=== PATIENT | female | born 1945 | race Caucasian/White ===

== ENCOUNTER 2021-10-10 16:24 | Inpatient (IN) | payer MEDICARE, BC, OTHER ==
[~2021-10-10] VITALS: Ht 160 cm; Wt 166.0 kg
--- NOTE | 2021-10-10 16:48 | NUR ---
ALLYSON TO ER BED 11
[2021-10-10 16:57] VITALS: BP 142/78
--- NOTE | 2021-10-10 16:57 | NUR ---
DR. IRWIN BEDSIDE EVALUATING PT
--- NOTE | 2021-10-10 17:09 | NUR ---
76Y FEMALE BIBA FROM HOME DUE TO SOB X2 DAYS. UPON ASSESSMENT PT HAS RASH/OPEN WOUNDS ON BILATERAL BREAST AT THIS TIME. PT STATED "SHE HAS LUNG PAIN AT THIS TIME, BUT NO CHEST PAIN." RHONCHI HEARD IN BILATERAL BASES AT THIS TIME, AND PT TACHYPNEIC AT THIS TIME. PT STATED "SHE IS SHORT OF BREATH AT THIS TIME AND FEELS LIKE SHE CANNOT CATCH HER BREATH." PT CURRENTLY 93% ON RA. WET COUGH NOTED AT THIS TIME. LE PITTING EDEMA NOTED ON PATIENT WELL. PT PLACED ON MIMEOGRAPHER PMH: COPD, CHF, A.FIB NKA
--- NOTE | 2021-10-10 17:11 | NUR ---
PT CURRENTLY SATING AT 93% ON RA. PT PALCED ON 2L VIA NC. PT ALSO REFUSING TO BE PLACED INTO HOSPITAL GOWN
--- NOTE | 2021-10-10 17:11 | NUR ---
XRAY AT PATIENT BEDSIDE
--- NOTE | 2021-10-10 18:14 | NUR ---
LAB AT PATIENT BEDSIDE
--- NOTE | 2021-10-10 18:21 | NUR ---
CALLED [facility] [employer]PER[employer] [facility] TO OBTAIN PICC LINE FOR PATIENT
[2021-10-10 18:41] LABS: BASOPHILS % (AUTO) 0.4 % (0.0-2.0); EOSINOPHILS # (AUTO) 0.1 K/uL (0-0.4); EOSINOPHILS % (AUTO) 1.8 % (0.0-4.0); HEMATOCRIT 34.4 % (36-48); HEMOGLOBIN 11.3 g/dL (12.0-16.0); LYMPHOCYTES # (AUTO) 0.8 K/uL (2.5-16.5); LYMPHOCYTES % (AUTO) 10.2 % (20.5-51.1); MEAN CORPUSCULAR HEMOGLOBIN 28 pg (27-31); MEAN CORPUSCULAR HGB CONC 33 g/dL (33-37); MEAN CORPUSCULAR VOLUME 85.6 fL (80-94); MONOCYTES # (AUTO) 0.6 K/uL (0.8-1.0); MONOCYTES % (AUTO) 8.3 % (1.7-9.3); NEUTROPHILS # (AUTO) 6.2 K/uL (1.8-7.7); NEUTROPHILS % (AUTO) 79.3 % (42.2-75.2); PLATELET COUNT (AUTO) 315 K/uL (140-450); RED BLOOD CELL COUNT(AUTO) 4.02 MIL/uL (4.20-5.40); RED CELL DISTRIBUTION WIDTH 16.1 % (11.6-13.7); WHITE BLOOD COUNT (AUTO) 7.8 K/uL (4.8-10.8)
[2021-10-10] MEDS ORDERED: ONDANSETRON 4 MG ODT PO ONE (18:45)
[2021-10-10 19:05] LABS: ANION GAP 11.5 (8-16); CARBON DIOXIDE 27.6 mmol/L (21-32); CHLORIDE 104 mmol/L (98-107); CREATININE 0.7 mg/dL (0.6-1.3); GLUCOSE 113 mg/dL (74-106); POTASSIUM 4.1 mmol/L (3.5-5.1); SODIUM SERUM 139 mmol/L (136-145); UREA NITROGEN, BLOOD 12 mg/dL (7-18)
--- NOTE | 2021-10-10 19:08 | NUR ---
PT CLEANED BEDSIDE AND PROVIDED WITH FRESH LINEN
[2021-10-10 19:11] LABS: ALBUMIN 3.1 g/dL (3.4-5.0); ASPARTATE AMINOTRANSFERASE 15 U/L (15-37); TOTAL BILIRUBIN 1.1 mg/dL (0.0-1.0)
--- NOTE | 2021-10-10 19:24 | NUR ---
Pt report given to ELLIOTT CHAVARRIA. Transfer of care at this time.
[2021-10-10 19:26] LABS: MAGNESIUM 1.8 mg/dL (1.8-2.4); PHOSPHORUS 4.2 mg/dL (2.5-4.9)
--- NOTE | 2021-10-10 19:40 | NUR ---
PT IS AWAKE AND ALERT. PT DENIES SOB AT THIS TIME. VSS. PT IS IN STABLE CONDITION. BED LOCKED IN LOWEST POSITION, SIDE RAILS X2 FOR SAFETY.
--- NOTE | 2021-10-10 20:13 | NUR ---
ASHWINI CALLED AUTH [id number]
[2021-10-10] MEDS ORDERED: FUROSEMIDE 40 MG TAB PO ONE (20:30)
--- NOTE | 2021-10-10 20:40 | NUR ---
FOLLOWED UP WITH ELLIOTT [employer]P ABOUT PICC LINE, HE STATED THAT HE WILL FOLLOW UP WITH THE PICC LINE NURSE FOR A STATUS.
--- NOTE | 2021-10-10 20:42 | NUR ---
Texted PICC RN for PICC placement. Waiting for PICC RN to text or call back
[2021-10-10] MEDS ORDERED: MAG SULF 2000 MG/WATER PREMIX 50 ML IV PRN (21:10)
[2021-10-10] MEDS ORDERED: DOCUSATE SODIUM 100 MG GELCAP PO PRN (21:10)
[2021-10-10] MEDS ORDERED: ACETAMINOPHEN 325 MG TAB PO PRN (21:10)
[2021-10-10] MEDS ORDERED: SODIUM PHOS / POTASSIUM PHOS 1 PKT PDR PO PRN (21:10)
[2021-10-10] MEDS ORDERED: POTASSIUM CHLORIDE 10 MEQ TABER PO PRN (21:10)
[2021-10-10] MEDS ORDERED: FUROSEMIDE 40 MG/4 ML VIAL IVP SCH (21:10)
[2021-10-10] MEDS ORDERED: ALBUTEROL SULFATE/IPRATROPIU 3 ML SOL IH ONE (21:48)
[2021-10-10] MEDS ORDERED: ALBUTEROL SULFATE/IPRATROPIU 3 ML SOL IH PRN (21:50)
--- NOTE | 2021-10-10 21:50 | NUR ---
PLACED PUREWICK PER REQUEST.
[2021-10-10 21:57] LABS: PROTHROMBIN TIME 10.5 secs (10.8-13.4)
[2021-10-10] MEDS ORDERED: NITROGLYCERIN 2% 1 GM PKT TP SCH (22:05)
--- NOTE | 2021-10-10 22:41 | NUR ---
UNABLE TO START IV FLUIDS. PICC LINE NEEDED.
[2021-10-10 22:48] LABS: CHOL/HDL RATIO 2.8 (1-4.5); PHOSPHORUS 4.2 mg/dL (2.5-4.9); THYROID STIMULATING HORMONE 1.71 uIU/mL (0.34-3.74)
--- NOTE | 2021-10-11 00:27 | NUR ---
PT IS AWAKE AND ALERT. ALL NEEDS MET AT THIS TIME. VSS. PT IN STABLE CONDITION. BED LOCKED IN LOWEST POSITION, SIDE RAILS X2 FOR SAFETY.
--- NOTE | 2021-10-11 00:43 | NUR ---
PT CLEANED UP. PERICARE PERFORMED. BED SHEETS CHANGED. ALL NEEDS MET AT THIS TIME.
--- NOTE | 2021-10-11 00:51 | NUR ---
PT UNABLE TO RECALL MEDICATION NAMES.
[2021-10-11 01:06] LABS: APPEARANCE,URINE HAZY (CLEAR); BILIRUBIN,URINE NEGATIVE (NEGATIVE); BLOOD, URINE NEGATIVE (NEGATIVE); COLOR,URINE YELLOW (YELLOW); LEUKOCYTE ESTERASE ,URINE NEGATIVE (NEGATIVE); NITRITE, URINE POSITIVE (NEGATIVE); PH,URINE 7.5 (5.0-9.0); UGLUCOSE NEGATIVE (NEGATIVE)
[2021-10-11 01:24] LABS: BARBITURATE, URINE NEGATIVE ng/ml (NEG <=200); BENZODIAZEPINE, URINE NEGATIVE ng/mL (NEG <=200); CANNABINOID, URINE NEGATIVE ng/mL (NEG <=50); COCAINE, URINE NEGATIVE ng/mL (NEG <=300); OPIATE, URINE NEGATIVE ng/mL (NEG <=2000); PHENCYCLIDINE SCREEN,URINE NEGATIVE ng/mL (NEG <=25); RBC,URINE 0-5 /HPF (0-5); WBC,URINE 0-5 /HPF (0-5)
[2021-10-11] MEDS: MORPHINE SULFATE 2 MG/ML SYR IVP PRN ×3 (01:57→21:54)
--- NOTE | 2021-10-11 01:58 | NUR ---
PT REPORTED PAIN 9/10 TO R HIP THAT RADIATES DOWN HER LEG. LIMITED ROM D/T BED SPACE, UNABLE TO SUCCESSFULLY REPOSITION. PT MEDICATED FOR PAIN PER ORDERS USING IM ROUTE D/T NO IV ACCESS.
--- NOTE | 2021-10-11 02:39 | NUR ---
PT MOVED ONTO A WIDER BED. PT STATES SHE FEELS MORE COMFORTABLE. ALL NEEDS MET AT THIS TIME. BED LOCKED IN LOWEST POSITION, SIDE RAILS X2 FOR SAFETY.
--- NOTE | 2021-10-11 02:40 | NUR ---
URINE OUTPUT 1300 CC
[2021-10-11] MEDS: ZOLPIDEM 5 MG TAB PO PRN (03:39)
--- NOTE | 2021-10-11 06:29 | NUR ---
PT'S DIAPER CHANGED. PERICARE PERFORMED.
--- NOTE | 2021-10-11 06:53 | NUR ---
PATIENT HAS BEEN SCREENED AND CATEGORIZED MODERATE NUTRITION RISK. PATIENT WILL BE SEEN WITHIN 3-5 DAYS OF ADMISSION. 10/14/21-10/16/21 ILANA DINH MS, RDN
--- NOTE | 2021-10-11 07:15 | NUR ---
AT BEDSIDE ATTEMPTING TO PLACE IV ULTRASOUND GUIDED.
--- NOTE | 2021-10-11 07:31 | NUR ---
Report and continuation of care received from ELLIOTT Mars.
--- NOTE | 2021-10-11 07:31 | NUR ---
Pt report given to ZAY GALLAGHER. Transfer of care at this time.
[2021-10-11] MEDS: NACL 0.9% 1,000 ML IV SCH ×2 (07:39→21:10)
--- NOTE | 2021-10-11 07:45 | NUR ---
Patient resting in semi-fowlers position. security monitor and NC remains in place. Pt reports bilateral arm pain that is chronic to self. Bed locked in lowest position, side rails x 2.
--- NOTE | 2021-10-11 08:54 | NUR ---
Patient c/o RLE pain. Morphine PRN to be given.
--- NOTE | 2021-10-11 09:00 | NUR ---
Lab at bedside
[2021-10-11 09:12] LABS: BASOPHILS % (AUTO) 0.7 % (0.0-2.0); EOSINOPHILS # (AUTO) 0.2 K/uL (0-0.4); EOSINOPHILS % (AUTO) 3.4 % (0.0-4.0); HEMATOCRIT 32.5 % (36-48); HEMOGLOBIN 10.6 g/dL (12.0-16.0); LYMPHOCYTES # (AUTO) 0.7 K/uL (2.5-16.5); LYMPHOCYTES % (AUTO) 10.8 % (20.5-51.1); MEAN CORPUSCULAR HEMOGLOBIN 28 pg (27-31); MEAN CORPUSCULAR HGB CONC 33 g/dL (33-37); MEAN CORPUSCULAR VOLUME 86.3 fL (80-94); MONOCYTES # (AUTO) 0.8 K/uL (0.8-1.0); MONOCYTES % (AUTO) 11.4 % (1.7-9.3); NEUTROPHILS % (AUTO) 73.7 % (42.2-75.2); PLATELET COUNT (AUTO) 282 K/uL (140-450); RED BLOOD CELL COUNT(AUTO) 3.77 MIL/uL (4.20-5.40); RED CELL DISTRIBUTION WIDTH 15.6 % (11.6-13.7); WHITE BLOOD COUNT (AUTO) 6.8 K/uL (4.8-10.8)
[2021-10-11] MEDS: ONDANSETRON 4 MG/2 ML VIAL IVP PRN ×2 (09:25→21:55)
[2021-10-11 09:49] LABS: ALBUMIN 2.9 g/dL (3.4-5.0); ANION GAP 11.3 (8-16); ASPARTATE AMINOTRANSFERASE 18 U/L (15-37); CARBON DIOXIDE 29.4 mmol/L (21-32); CHLORIDE 106 mmol/L (98-107); CREATININE 0.7 mg/dL (0.6-1.3); GLUCOSE 97 mg/dL (74-106); POTASSIUM 3.7 mmol/L (3.5-5.1); SODIUM SERUM 143 mmol/L (136-145); TOTAL BILIRUBIN 1.3 mg/dL (0.0-1.0); UREA NITROGEN, BLOOD 9 mg/dL (7-18)
[2021-10-11] MEDS: FUROSEMIDE 20 MG/2 ML VIAL IVP SCH ×2 (10:15→21:50)
--- NOTE | 2021-10-11 11:39 | NUR ---
graphic art technician reports patient may be too heavy for CT machine here. Spoke with patient who states she weighs 366lbs and has had issues receiving CT in the past due to her weight. Charge nurse made aware.
--- NOTE | 2021-10-11 11:55 | NUR ---
Dr. Yin paged regarding patient unable to complete CT at this time. Message left.
--- NOTE | 2021-10-11 12:05 | NUR ---
1005mL clear/yellow urine discarded from suction canister. Purewick remains in place.
--- NOTE | 2021-10-11 12:30 | NUR ---
Patient states she has gotten stuck in a CT scan at this time. pipeline technician made aware.
--- NOTE | 2021-10-11 13:38 | NUR ---
Dr. Thomas is evaluating patient at bedside
--- NOTE | 2021-10-11 16:07 | NUR ---
technology infusion specialist and Ultasound tech at bedside. [facility] states she will return after CT.
--- NOTE | 2021-10-11 16:40 | NUR ---
US tech at bedside
--- NOTE | 2021-10-11 16:46 | NUR ---
Patient c/o pain due to movement during CT. Patient repositioned in semi-fowlers. All pt needs met. property assessment monitor in place. Bed locked in lowest position, side rails x 2.
--- NOTE | 2021-10-11 17:05 | NUR ---
US procedure delayed d/t pain.
[2021-10-11] MEDS: LORazepam 2 MG/ML VIAL IM/IVP PRN ×2 (17:07→21:53)
--- NOTE | 2021-10-11 17:48 | NUR ---
Pt reports feels a lot better now after Ativan IVP. States she is ready for US. Thanx contacted and made aware.
--- NOTE | 2021-10-11 18:00 | NUR ---
Consent signed for PICC line insertion procedure.
--- NOTE | 2021-10-11 18:09 | NUR ---
US tech at ER bedside made aware patient is ready to complete Bilateral LE US.
--- NOTE | 2021-10-11 18:30 | NUR ---
PICC line nurse at bedside for procedure
--- NOTE | 2021-10-11 18:32 | NUR ---
PICC line consent form signed
--- NOTE | 2021-10-11 19:55 | NUR ---
Report and transfer of care endorsed to ELLIOTT García.
--- NOTE | 2021-10-11 21:14 | NUR ---
ULTRASOUND AT BEDSIDE
[2021-10-12] MEDS: HYDROcodone/APAP 5/325 MG 1 TAB TAB PO PRN ×2 (00:57→21:57)
[2021-10-12] MEDS: MORPHINE SULFATE 2 MG/ML SYR IVP PRN ×3 (06:11→15:27)
--- NOTE | 2021-10-12 07:50 | NUR ---
TRANSFER OF CARE REPORT GIVEN TO ZAY GALLAGHER.
--- NOTE | 2021-10-12 07:50 | NUR ---
Report and continuation of care received from ELLIOTT García.
--- NOTE | 2021-10-12 08:01 | NUR ---
Report given to ELLIOTT Davis.
--- NOTE | 2021-10-12 08:09 | NUR ---
Dr. Yin is evaluating pt at bedside
--- NOTE | 2021-10-12 08:21 | NUR ---
Patient will be admitted to care of Dr. Edmondson. Admited to Telemetry. Will go to room 111A. Belongings list completed. Report to ELLIOTT Davis.
[2021-10-12 08:30] VITALS: BP 125/81
--- NOTE | 2021-10-12 08:30 | NUR ---
RECEIVED PATIENT FROM ER NURSE VIA CHUN FROM ER NURSE. PT ADMITTED FOR CHF. PT IS AOX4, ABLE TO MAKE NEEDS KNOWN. RESPIRATIONS EVEN AND UNLABORED. ON 3 L NC O2 SATURATION AT 94%. SKIN IS WARM, DRY, AND INTACT. HAS TOPHER PICC LINE AND LAC 20G INTACT AND PATENT. IVF INFUSING WELL. PT COMPLAINS OF RLE PAIN 9/10. WILL MEDICATE ORDERED. ABD IS SOFT, FLAT, AND NON-TENDER. BOWEL SOUNDS ACTIVE IN ALL QUADRANTS. PURE WICK IN PLACE ON CONTINUOUS SUCTION. PLAN OF CARE DISCUSSED. SAFETY PRECAUTIONS IN PLACE. CALL LIGHT WITHIN REACH. WILL CONTINUE TO MONITOR.
[2021-10-12] MEDS: FUROSEMIDE 20 MG/2 ML VIAL IVP SCH ×2 (09:20→21:26)
--- NOTE | 2021-10-12 09:30 | NUR ---
WINDOWS SERVER ENGINEER AT BEDSIDE.
--- NOTE | 2021-10-12 09:30 | NUR ---
ALL SCHEDULED MEDS GIVEN. PT IS STABLE. NO DISTRESS NOTED. WILL CONTINUE TO MONITOR.
--- NOTE | 2021-10-12 10:44 | NUR ---
PT COMPLAINED OF 9/10 RLE PAIN. MEDICATED WITH PRN PAIN MEDS PER MD ORDERED.
[2021-10-12 12:00] VITALS: BP 125/81
--- NOTE | 2021-10-12 15:27 | NUR ---
PT COMPLAINED OF 9/10 RLE PAIN. MEDICATED WITH PRN PAIN MEDS PER MD ORDERED.
[2021-10-12 16:00] VITALS: BP 125/81
[2021-10-12 20:00] VITALS: BP 104/64
--- NOTE | 2021-10-12 20:15 | NUR ---
PT IS ON BED.CONDITION STABLE.R.U.A.PICC LINE PATENT.NO C/O PAIN NOW. RESP.UNLABORED W/O2 AT 3L/NC.HAS GENERALIZED EDEMA.HR IS ST.CALL LIGHT IN REACH.WILL CONT.MONITORING.
--- NOTE | 2021-10-12 20:18 | NUR ---
ENDORSED TO CAPONIZER NURSE FOR CONTINUITY OF CARE. PT IS STABLE.
--- NOTE | 2021-10-12 21:40 | NUR ---
PT PRESENTS LAYING IN BED WITH NO SIGNS OF RESPIRATORY DISTRESS SATING 97% ON 2LPM NC. WILL CONTINUE TO MONITOR.
[2021-10-13] VITALS: BP 105/54
[2021-10-13] MEDS: NACL 0.9% 1,000 ML IV SCH (00:30)
[2021-10-13] MEDS: ZOLPIDEM 5 MG TAB PO PRN (00:31)
--- NOTE | 2021-10-13 01:40 | NUR ---
SLEEPING.IVF OF NS AT 20ML/H STARTED AND INFUSING WELL.VS STABLE.HR IS ST.
[2021-10-13 04:00] VITALS: BP 137/86
[2021-10-13] MEDS: MORPHINE SULFATE 2 MG/ML SYR IVP PRN ×3 (04:23→17:44)
--- NOTE | 2021-10-13 07:45 | NUR ---
RECEIVED REPORT FROM WEED COOKING OPERATOR NURSE FOR CONTINUITY OF CARE. PT IN BED, AWAKE. BREATHING SYMMETRICAL. ON O2 VIA NC AT 3L. WITH TOPHER PICC LINE DOUBLE LUMEN WITH NS RUNNING AT 20CC AND LAC 20G. CALL LIGHT PLACED WITHIN REACH. ALL SAFETY MEASURES IN PLACE.
[2021-10-13 08:00] VITALS: BP 135/84
--- NOTE | 2021-10-13 08:47 | NUR ---
ENDORSED TO AM RN.PT IS PAIN FREE NOW.NO DISTRESS NOTED AT THIS TIME.
[2021-10-13] MEDS: FUROSEMIDE 20 MG/2 ML VIAL IVP SCH (08:54)
--- NOTE | 2021-10-13 08:56 | NUR ---
SCHEDULED AM MEDICATIONS GIVEN PER MD ORDER.
--- NOTE | 2021-10-13 10:49 | NUR ---
PT WAS MEDICATED FOR PAIN 07/06. PT STATED MEDICATION WAS NOT EFFECTIVE. WHEN REASSESSED. PT LYING IN BED. INSTRUCTED ON BREATHING EXERCISES, REPOSITIONED, AND LIGHTS DIMMED. CALL LIGHT IN REACH. ALL SAFETY MEASURES IN PLACE
[2021-10-13 12:00] VITALS: BP 140/69
[2021-10-13] MEDS ORDERED: DIGOXIN 0.25 MG/ML AMP IV SCH (12:00)
[2021-10-13] MEDS ORDERED: FUROSEMIDE 20 MG/2 ML VIAL IVP SCH (12:00)
--- NOTE | 2021-10-13 14:00 | NUR ---
PT RESTING IN BED. NO S/S OF DISTRESS. CALL LIGHT IN REACH. ALL SAFETY MEASURES IN PLACE. PUREWICK SUCTIONING. BREATHING SYMMETRICAL
[2021-10-13 16:00] VITALS: BP 141/82
[2021-10-13] MEDS: FUROSEMIDE 40 MG/4 ML VIAL IVP SCH (17:31)
[2021-10-13] MEDS ORDERED: DIGOXIN 0.25 MG TAB PO SCH (18:00)
[2021-10-13 20:00] VITALS: BP 133/69
[2021-10-13] MEDS: LORazepam 2 MG/ML VIAL IM/IVP PRN (21:00)
[2021-10-14] VITALS: BP 130/68
[2021-10-14] MEDS ORDERED: DIGOXIN 0.25 MG TAB PO SCH
--- NOTE | 2021-10-14 00:59 | NUR ---
PATIENT AWAKE ALERT HAS 02 ON 2 LITERS N/C. IS ON MONITOR A-FIB HAS RIGHT UPPER ARM PICC LINE. MAG 1.8 GIVEN MAG 2GM IVPB. AND WAS GIVEN ATIVAN 1 MG IVP. PATIENT ANXIOUS. NO DISTRESS NOTED THIS TIME.
[2021-10-14 04:00] VITALS: BP 128/70
[2021-10-14] MEDS: MORPHINE SULFATE 2 MG/ML SYR IVP PRN (05:00)
--- NOTE | 2021-10-14 07:20 | NUR ---
RECEIVED BEDSIDE REPORT FROM CAREER DEVELOPER NURSE FOR CONTINUITY OF CARE. PT IS AWAKE AND ALERT, A&OX4. ON 2L O2 NC WITH BREATHING UNLABORED. AFIB ON TELE MONITOR. INCONTINENT OF THE BOWEL AND BLADDER. SKIN IS WARM AND DRY. PICC LINE IN THE RIGHT UA INFUSING FLUIDS ORDERED. PT IS STABLE. WILL CONTINUE TO MONITOR.
[2021-10-14 08:00] VITALS: BP 138/79
[2021-10-14 08:48] LABS: BASOPHILS % (AUTO) 0.4 % (0.0-2.0); EOSINOPHILS # (AUTO) 0.2 K/uL (0-0.4); EOSINOPHILS % (AUTO) 3.1 % (0.0-4.0); HEMATOCRIT 32.5 % (36-48); HEMOGLOBIN 10.7 g/dL (12.0-16.0); LYMPHOCYTES # (AUTO) 0.8 K/uL (2.5-16.5); LYMPHOCYTES % (AUTO) 11.9 % (20.5-51.1); MEAN CORPUSCULAR HEMOGLOBIN 28 pg (27-31); MEAN CORPUSCULAR HGB CONC 33 g/dL (33-37); MEAN CORPUSCULAR VOLUME 85.6 fL (80-94); MONOCYTES # (AUTO) 0.8 K/uL (0.8-1.0); MONOCYTES % (AUTO) 10.8 % (1.7-9.3); NEUTROPHILS # (AUTO) 5.2 K/uL (1.8-7.7); NEUTROPHILS % (AUTO) 73.8 % (42.2-75.2); PLATELET COUNT (AUTO) 272 K/uL (140-450); RED CELL DISTRIBUTION WIDTH 15.8 % (11.6-13.7)
[2021-10-14] MEDS ORDERED: ASPIRIN 81 MG TAB.CHEW PO SCH (09:00)
[2021-10-14 09:03] LABS: ANION GAP 8.3 (8-16); CARBON DIOXIDE 34.3 mmol/L (21-32); CHLORIDE 100 mmol/L (98-107); CREATININE 0.6 mg/dL (0.6-1.3); GLUCOSE 107 mg/dL (74-106); POTASSIUM 3.6 mmol/L (3.5-5.1); SODIUM SERUM 139 mmol/L (136-145); UREA NITROGEN, BLOOD 11 mg/dL (7-18)
[2021-10-14] MEDS: NACL 0.9% 1,000 ML IV SCH (09:36)
[2021-10-14] MEDS: FUROSEMIDE 40 MG/4 ML VIAL IVP SCH ×2 (09:36→17:02)
[2021-10-14] MEDS: LORazepam 2 MG/ML VIAL IM/IVP PRN (09:51)
--- NOTE | 2021-10-14 09:51 | NUR ---
ATIVAN WAS GIVEN IVP FOR ANXIETY. PT IS CRYING AND STATING SHE IS ANXIOUS. BP IS STABLE PRIOR TO ADMINISTRATION OF MEDICATION.
--- NOTE | 2021-10-14 11:47 | NUR ---
DISCHARGE PLANNING Order for dc planning to SNF for Rehab. Spoke with pt at bedside & agreeable with SNF. Per pt has no preference, whichever contracted with [facility]. Called [facility], , per Serena to fax order/SNF packet & a CM will be assigned to case. Faxed to [facility], . Addendum: 10/15/21 at 1714 by Lelo URRUTIA DISCHARGE PLANNING LATE ENTRY PATIENT IS A 76-YEAR-OLD FEMALE ADMITTED IN THE [facility]/ED ON 10/10/2021 DUE TO HISTORY OF CHF, CROHN'S DISEASE AND OCPD, WHO WAS [place] IN BY EMS FOR SHORTHNESS OF BREATH OVER THE WEEK. PARKER MET WITH PATIENT AT BEDSIDE TO DISCUSS AND GATHER HER COLLATERAL INFORMATION. PATIENT WAS ALERT AWAKE AND COOPERATIVE AT FIRST, REPORTED LIVING AT HOME WITH HER SON JASSON AND NEAL IN [place] [facility] [place]. PATIENT STATED THAT SHE HAS ADVANCE DIRECTIVES AND IS A DNR WITH SON BEEN HER EMERGENCY CONTACT AND MEDICAL DESICION MAKER. THEREFORE; SHE DECLINED A.D. INF. PACKET PROVIDED BY PARKER. PATIENT REPORTED NOT HAVING ANY ISSUES GETTING OR TAKING HER MEDICATIONS FROM THE [facility] NEAR HER HOME. PATIENT STATED HAVING ALL THE DME NECESSARY AT HOME. PER PATIENT SHE HAS A PCP MD AKIKO COX WHO HAS NOT SEEN FOR ABOUT 4 MONTHS; HOWEVER WILL MAKE AN APPOINTMENT TO FOLLOW UP WITH AFTER HER DC FROM [facility]. PER PATIENT HER SON JASSON AND NEAL WILL BE ASSISTING HER WITH TRANSPORTATION BACK HOME WHEN SHE IS READY TO DC FROM [facility]. PARKER DISCUSSED WITH PATIENT ABOUT MD RECOMMENDATIONS TO SNF PATIENT, GOT REALLY UPSET AND BEGAN TO CRY STATING " NO I DO NOT WANT TO GO TO ANY FACILITY I JUST WANT TO GO WITH MY SON AND GRANDSON" PARKER ATTEMPTED TO EXPLAINED PATIENT THE REASON OF MD RECOMMENDATION HOWEVER PATIENT DECLINED THE REFERRAL AND REQUESTED TO GO HOME WITH HOME HEALTH WHEN SHE IS READY FROM [facility]. PARKER ALSO CONTACTED HER SON JASSON AT TO DISCUSS SNF. PER PATIENT'S SON SHE IS NEVER GOING TO GO TO A FACILITY ON HER OWN" STATED "WE HAVE TALK TO HER SEVERAL TIMES ABOUT THE ISSUE AND SHE IS NOT ON AGREEMENT AND I CAN'T FORCE HER THEREFORE; WE ARE TAKING HER HOME WHEN SHE IS READY TO DC WITH HOME HEALTH" PARKER THANKED HER SON FOR THE INFORMATION AND WILL DISCUSS WITH CM AND FOLLOW UP NEEDED Addendum: 10/16/21 at 1138 by Rosalina Acevedo CM No Home Health orders, called & left msg with Dr Carolina for home health orders. Addendum: 10/16/21 at 1502 by Rosalina Acevedo CM Received Home Health orders, called & spoke with Judith at [facility], states need to fax Home Health orders & CM will be assigned to work on order. Faxed order/referral packet to [facility].
[2021-10-14 12:00] VITALS: BP 134/47
[2021-10-14] MEDS ORDERED: PANTOPRAZOLE 40 MG INJ VIAL IVP ONE (12:46)
[2021-10-14] MEDS ORDERED: METOCLOPRAMIDE 10 MG/2 ML INJ VIAL IVP ONE (12:46)
[2021-10-14] MEDS: ONDANSETRON 4 MG/2 ML VIAL IVP PRN (12:48)
--- NOTE | 2021-10-14 12:48 | NUR ---
PT STATED SHE WAS NAUSEOUS AND HAD AN EPISODE OF EMESIS. DARK COLORED EMESIS NOTED. DR. CEDEÑO AWARE. PLACED AN ORDER FOR CONSULT FOR DR. PONCE. DR. PONCE AT BEDSIDE ASSESSING PT. NO NEED FOR INTERVENTION AT THIS TIME THE PATIENT STATES THAT THE FOOD MADE HER STOMACH UPSET. PT STATES SHE HAS GERD AND NEEDS AN ORDER FOR PRILOSEC. DR. PONCE STATED HE WILL START HER BACK ON HER MEDICATION FROM HOME.
[2021-10-14] MEDS ORDERED: MAG SULF 2000 MG/WATER PREMIX 100 ML IV SCH (13:00)
[2021-10-14] MEDS: SENNA 8.6 MG TAB PO SCH ×2 (13:19→17:01)
[2021-10-14] MEDS: METOCLOPRAMIDE 10 MG/2 ML INJ VIAL IVP SCH ×2 (13:20→22:36)
[2021-10-14] MEDS ORDERED: POTASSIUM CHLORIDE 10 MEQ TABER PO SCH (14:00)
[2021-10-14] MEDS: METOPROLOL 25 MG TAB PO SCH ×2 (15:51→22:36)
[2021-10-14 16:00] VITALS: BP 134/68
--- NOTE | 2021-10-14 16:15 | NUR ---
ROD PILER FROM THE LOBBY CALL ME - SHE SAID THE CALLS FOR THE THIS PT. KEEPS COMING BACK TO HER IS STATED '' CRISIS " SHE DOES NOT KNOW WHAT IT IS MEAN . I CHECK THE PT IN THE ROOM - PT TALKING OVER THE PHONE - COMFROTABLE ON BED NO SIGNS OF DISTRESS NOTED . CALL LIGHT WITHIN REACH . NO COMPLAIN MADE .
[2021-10-14] MEDS: HYDROcodone/APAP 5/325 MG 1 TAB TAB PO PRN (17:07)
--- NOTE | 2021-10-14 17:07 | NUR ---
PT WAS GIVEN NORCO FOR PAIN. PT STATES PAIN AT A SCALE OF 6/10 IN THE LEGS BILATERALLY. WILL CONTINUE TO MONITOR FOR PAIN.
--- NOTE | 2021-10-14 18:30 | NUR ---
PT WAS STABLE THROUGHOUT SHIFT. BREATHING WAS UNLABORED ON 2L O2 NC. PT WOULD BRIEFLY TAKE OFF O2, BUT O2 WOULD DROP TO 88%. NC WAS PLACED BACK ON PT. SWELLING NOTED IN THE LOWER EXTREMITIES BILAT. PT IS AWAKE AND ALERT, A&OX4. AT TIMES, PERIOD OF CONFUSION NOTED SHE CALLED OUT FOR HER "DADDY." PT STATES SHE IS CONSTIPATED AND SENNAKOT WAS ADDED TO MEDICATIONS BY DR. PONCE. NO BM'S ON THIS SHIFT. ONLY ONE EPISODE OF NAUSEA AND VOMITING. PT IS INCONTINENT WITH FREQUENT LINEN CHANGES AND MINIMUM ASSISTANCE WITH REPOSITIONING. PICC LINE IS STILL IN PLACE IN HE RIGHT UPPER ARM. PT DENIES PAIN. D/C PLANNING FOR SNF PLACEMENT.
--- NOTE | 2021-10-14 19:26 | NUR ---
ENDORSED PT TO MACHINIST CLASS B NURSE FOR CONTINUITY OF CARE. PT IS STABLE. PLAN OF CARE DISCUSSED.
[2021-10-14 20:00] VITALS: BP 135/65
--- NOTE | 2021-10-14 20:00 | NUR ---
RECEIVED BEDSIDE REPORT FROM DAY SHIFT NURSE FOR CONTINUITY OF CARE. PT A&OX4, ABLE TO VERBALIZE NEEDS. ON 2L O2 NC. RESPIRATION IS EVEN AND UNLABORED, NO SIGN OF SOB OR DIFFICULTY OF BREATHING NOTED, DENIES PAIN DURING ASSESSMENT. AFIB ON TELE MONITOR. INCONTINENT OF THE BOWEL AND BLADDER, SELF TURN WITH ASSISTANCE. SKIN IS WARM AND DRY. PICC LINE IN THE RIGHT UA INFUSING FLUIDS ORDERED. PT IS STABLE. WILL CONTINUE TO MONITOR.
[2021-10-14] MEDS: PANTOPRAZOLE 40 MG INJ VIAL IVP SCH (22:00)
--- NOTE | 2021-10-14 22:24 | NUR ---
INFORM THE NURSE FIX THE TELEBOX - PT IS OUT OF TELE . Addendum: 10/14/21 at 2225 by Karen Cuevas RN GISELA HOLMAN IS ON BREAK
[2021-10-14] MEDS: ZOLPIDEM 5 MG TAB PO PRN (22:36)
[2021-10-14] MEDS: LACTULOSE 20 GM/30 ML UDC PO SCH (22:37)
[2021-10-15] VITALS: BP 138/67
[2021-10-15 04:00] VITALS: BP 140/78
[2021-10-15] MEDS: METOCLOPRAMIDE 10 MG/2 ML INJ VIAL IVP SCH ×3 (05:01→21:41)
--- NOTE | 2021-10-15 06:48 | NUR ---
Endorsed the continuity of care to the incoming nurse.
--- NOTE | 2021-10-15 07:20 | NUR ---
RECEIVED REPORT FROM WEATHER ANCHOR NURSE FOR CONTINUITY OF CARE
[2021-10-15 08:00] VITALS: BP 146/93
[2021-10-15] MEDS ORDERED: PANT40EC PO (08:33)
[2021-10-15] MEDS ORDERED: LACT10SO11 PO (08:33)
[2021-10-15] MEDS ORDERED: SENN-74 PO (08:33)
[2021-10-15] MEDS ORDERED: DIGO-81 PO (08:33)
[2021-10-15] MEDS ORDERED: METO5SOL24 IVP (08:33)
[2021-10-15] MEDS ORDERED: METO25TA PO (08:33)
[2021-10-15] MEDS ORDERED: SPIR50TA PO (08:34)
[2021-10-15] MEDS ORDERED: FURO-570 PO (08:34)
[2021-10-15] MEDS: LACTULOSE 20 GM/30 ML UDC PO SCH ×2 (09:40→22:41)
[2021-10-15] MEDS: POTASSIUM CHLORIDE 20% 40 MEQ/15 ML UDC GT SCH (09:41)
[2021-10-15] MEDS: SENNA 8.6 MG TAB PO SCH ×3 (09:41→17:14)
[2021-10-15] MEDS: FUROSEMIDE 40 MG/4 ML VIAL IVP SCH ×2 (09:42→17:14)
[2021-10-15] MEDS: PANTOPRAZOLE 40 MG INJ VIAL IVP SCH ×2 (09:42→21:41)
[2021-10-15] MEDS: METOPROLOL 25 MG TAB PO SCH ×2 (09:43→22:41)
[2021-10-15] MEDS: DIGOXIN 0.25 MG TAB PO SCH (09:43)
--- NOTE | 2021-10-15 12:00 | NUR ---
PT DOWNGRADED TO MEDSURG PER SUPERVISOR COKE HANDLING
--- NOTE | 2021-10-15 14:28 | NUR ---
PT STATED SHE DOES NOT WANT TO GO TO A FACILITY AND WANTS TO BE DISCHARGED. NOTIFIED PAT CM, PAT WILL FOLLOW UP WITH PT REGARDING NEED FOR REHAB
[2021-10-15 16:00] VITALS: BP 128/62
--- NOTE | 2021-10-15 18:26 | NUR ---
PT RESTING IN BED WITH EYES CLOSED. NO S/S OF DISTRESS. CALL LIGHT IN REACH. ALL SAFETY MEASURES IN PLACE.
--- NOTE | 2021-10-15 19:52 | NUR ---
ENDORSED PT TO GLOVE TURNER NURSE FOR CONTINUITY OF CARE
--- NOTE | 2021-10-15 19:53 | NUR ---
RECD. RESTING IN BED, AWAKE, A/OX3. OBESE. ON 02 AT 2 LITERS VIA N/C. RESPIRATION EVEN AND UNLABORED. PICC LINE AT THE RIGHT UPPER ARM WITH DRESSING DRY AND INTACT. COMPLAINING OF UNABLE TO HAVE BM FOR 3 DAYS, WILL MEDICATE PER MD ORDER. DENIES PAIN 0/10.
--- NOTE | 2021-10-15 21:39 | NUR ---
PT WAS SEEN AND ASSESSED. PT WAS ON ROOM AIR WITH SPO2 OF 96%. PT IS IN NO RESPIRATORY DISTRESS AT THIS TIME. PRN TREATMENT NOT INDICATED AT THIS TIME. WILL CONTINUE TO MONITOR.
--- NOTE | 2021-10-15 21:41 | NUR ---
SCHEDULED MEDICATIONS FOR THE NIGHT ADMINISTERED. MOANING AND CRYING, COMPLAINING THAT SHE HAS NO BM FOR THREE DAYS. ADVISED TO TAKE FIRST LACTULOSE. WANTS FLEET ENEMA. ASSURED THAT MD WILL BE CALLED TO REQUEST ORDER FOR FLEET ENEMA.
[2021-10-15] MEDS ORDERED: SODIUM PHOSPHATE 118 ML ENEM RC SCH (22:25)
--- NOTE | 2021-10-15 23:00 | NUR ---
HAD A LARGE SOLID BM. STILL WANTS TO HAVE THE FLEET ENEMA.
[2021-10-16] VITALS: BP 134/83
--- NOTE | 2021-10-16 00:23 | NUR ---
ADMINISTERED FLEET ENEMA PER MD ORDER.
--- NOTE | 2021-10-16 02:27 | NUR ---
Patient's Plan of Care was discussed and reviewed with PROCUREMENT OFFICER: BANG MITCHELL
--- NOTE | 2021-10-16 03:00 | NUR ---
HAD ANOTHER LARGE LOOSE BM. CLEANSED AND ASSISTED TO REPOSITION IN BED.
[2021-10-16] MEDS: HYDROcodone/APAP 5/325 MG 1 TAB TAB PO PRN ×2 (04:38→04:54)
--- NOTE | 2021-10-16 05:00 | NUR ---
PICC LINE DRESSING CHANGED BY ELLIOTT TERAN.
[2021-10-16] MEDS: METOCLOPRAMIDE 10 MG/2 ML INJ VIAL IVP SCH (05:01)
--- NOTE | 2021-10-16 07:00 | NUR ---
CONDITION REMAIN STABLE. ALL NEEDS ATTENDED. WILL ENDORSE TO AM SHIFT NURSE FOR CONTINUITY OF CARE.
--- NOTE | 2021-10-16 07:08 | NUR ---
RECEIVED REPORT FROM SPECIAL PROCEDURES TECHNOLOGIST NURSE FOR CONTINUITY OF CARE. PT IS IN BED, YELLING AND CRYING AT THIS TIME. PT STATING THAT SHE WANTS HER SON TO COME AND TAKE HER. ATTEMPTED TO RE-ORIENTATE PT. PT CONTINUES TO YELL AND CRY. ASKED PT IF SHE WAS IN PAIN, PT IGNORED. CALL LIGHT WITHIN REACH. ALL SAFETY MEASURES IN PLACE. WILL CONTINUE TO MONITOR.
[2021-10-16 08:00] VITALS: BP 113/80
--- NOTE | 2021-10-16 08:00 | NUR ---
Patient's Plan of Care was discussed and reviewed with BLADE BENDER FURNACE TENDER: RANI RODRIGUEZ
[2021-10-16] MEDS: POTASSIUM CHLORIDE 20% 40 MEQ/15 ML UDC GT SCH (09:17)
[2021-10-16] MEDS: LACTULOSE 20 GM/30 ML UDC PO SCH (09:18)
[2021-10-16] MEDS: DIGOXIN 0.25 MG TAB PO SCH (09:18)
[2021-10-16] MEDS: SENNA 8.6 MG TAB PO SCH ×2 (09:19→13:02)
[2021-10-16] MEDS: METOPROLOL 25 MG TAB PO SCH (09:19)
[2021-10-16] MEDS: FUROSEMIDE 40 MG/4 ML VIAL IVP SCH (09:24)
[2021-10-16] MEDS: PANTOPRAZOLE 40 MG INJ VIAL IVP SCH (09:24)
--- NOTE | 2021-10-16 11:15 | NUR ---
PT IN BED AT THIS TIME. PT CONTINUES TO YELL OUT. STATING SHE WANTS TO GO HOME. INFORMED PT THAT SHE IS SCHEDULED FOR DISCHARGE. PT STATED "GOOD, I WANNA BE WITH MY FAMILY". CALL LIGHT WITHIN REACH. WILL CONTINUE TO MONITOR.
--- NOTE | 2021-10-16 14:06 | NUR ---
PHYSICAL THERAPY CO-SIGN The Physical Therapy Progress Notes documented by French Pastry Cook have been reviewed. Reviewed/Co-Signed by: Kathrin Romero Documentation Done by: KILEY HOFF PTA Addendum: 10/16/21 at 1406 by Kathrin Romero PT Amended: Links added.
--- NOTE | 2021-10-16 14:06 | NUR ---
PHYSICAL THERAPY CO-SIGN The Physical Therapy Progress Notes documented by Vp Product have been reviewed. Reviewed/Co-Signed by: Kathrin Romero Documentation Done by: KILEY HOFF PTA Addendum: 10/16/21 at 1406 by Kathrin Romero PT Amended: Links added.
--- NOTE | 2021-10-16 15:00 | NUR ---
DISCHARGE PLAN IN PLACE. WENT OVER DISCHARGE PAPERWORK WITH PT. ANSWERED ALL QUESTIONS. PT SIGNED ALL PAPERWORK. REMOVED WRIST BAND, RN REMOVED PICC LINE. PT LEFT UNIT VIA WC.
[2021-10-16] MEDS ORDERED: FUROSEMIDE 40 MG TAB PO SCH (17:00)
[2021-10-17] MEDS ORDERED: LANSOPRAZOLE 30 MG CAPDR PO SCH (06:30)
--- NOTE | 2021-10-17 15:49 | NUR ---
PHYSICAL THERAPY CO-SIGN The Physical Therapy Progress Notes documented by Supervisor Sunglasses have been reviewed. Reviewed/Co-Signed by: Kathrin Romero Documentation Done by: KILEY HOFF PTA Addendum: 10/17/21 at 1549 by Kathrin Romero PT Amended: Links added.
== END 2021-10-16 15:00 | disposition home health service (06) | DRG 291 ==
LOC: MED 16:24 → MTU 20:58
PROVIDERS: ADMIT Family Medicine; ATTEND Family Medicine
PROC: 02HV33Z Insertion of Infusion Device into Superior Vena Cava, Percutaneous Approach (ICD-10-PCS; principal; 2021-10-11)
PROC: B548ZZA Ultrasonography of Superior Vena Cava, Guidance (ICD-10-PCS; 2021-10-11)
DX: I11.0 Hypertensive heart disease with heart failure (principal); I50.43 Acute on chronic combined systolic (congestive) and diastolic (congestive) heart failure; J96.01 Acute respiratory failure with hypoxia; J98.11 Atelectasis; K50.90 Crohn's disease, unspecified, without complications; Z68.44 Body mass index [BMI] 60.0-69.9, adult; E66.2 Morbid (severe) obesity with alveolar hypoventilation; K92.2 Gastrointestinal hemorrhage, unspecified; I48.91 Unspecified atrial fibrillation; K44.9 Diaphragmatic hernia without obstruction or gangrene; J44.9 Chronic obstructive pulmonary disease, unspecified; E03.9 Hypothyroidism, unspecified; I25.10 Atherosclerotic heart disease of native coronary artery without angina pectoris; K59.09 Other constipation; N63.20 Unspecified lump in the left breast, unspecified quadrant; Z20.822 Contact with and (suspected) exposure to COVID-19; Z87.891 Personal history of nicotine dependence
CPT/HCPCS: 36415; 71045; 71250; 76641; 80048; 80053; 80162; 80305; 81001; 82150; 83036; 83690; 83735; 83880; 84100; 84443; 84484; 85025; 85379; 85610; 85730; 87081; 87086; 93005; 93925; 93970; 94640; 97110; 97112; 97116; 97163-GP; 97530; 99285; C9113; J1160; J1940; J2060; J2270; J2405; J2765; J3475; Q0092; Q0162

== ENCOUNTER 2021-12-16 15:14 | Emergency (ER) | payer MEDICARE, BC, OTHER ==
[~2021-12-16] VITALS: Ht 162.6 cm; Wt 166.5 kg
[~2021-12-16 15:14] MED LIST: DIGO-81 PO; FURO-570 PO; LACT10SO11 PO; METO25TA PO; METO5SOL24 IVP; PANT40EC PO; SENN-74 PO; SPIR50TA PO
[2021-12-16 15:15] VITALS: BP 104/49
--- NOTE | 2021-12-16 15:20 | NUR ---
Patient wheelchair assisted to bed 01.
--- NOTE | 2021-12-16 15:25 | NUR ---
Dr. Nunez is evaluating patient at bedside
--- NOTE | 2021-12-16 15:30 | NUR ---
76 y/o F BIB family c/o generalized abdominal pain, L breast pain and "fluids in my breast and abdomen." Pt reports vomiting x 3 episodes "acid." Pt reports feeling congested for the past 3 days and abdomen pain is chronic to self. Pt states admitted for pnuemonia here "2-4 months ago," prescribed medication, however, has been unable to fill prescribed meds due to pharmacy issues. Pt also reports inability to swallow small pills, states last taken Lasix two days ago. Pt also reports dysuria. compliance monitor in place. Bed locked in lowest position, side rails x 2 for pt safety. MEDHX: AFIB, CHF, HTN, ASTHMA, COPD, CHRONS DISEASE, ACID REFLUX, ANXIETY ALLERGIES: PENICILLINS, SULFA Meds:
[2021-12-16] MEDS ORDERED: FUROSEMIDE 40 MG/4 ML VIAL IVP ONE (15:35)
--- NOTE | 2021-12-16 15:40 | NUR ---
Charge nurse at bedside for IV insertion
--- NOTE | 2021-12-16 15:56 | NUR ---
Purewick in place.
--- NOTE | 2021-12-16 15:58 | NUR ---
Pt is requesting [address] scan. States last CT completed at [facility]. rf technician made aware.
--- NOTE | 2021-12-16 16:00 | NUR ---
Lab at bedside
--- NOTE | 2021-12-16 16:19 | NUR ---
RAD at bedside
--- NOTE | 2021-12-16 16:20 | NUR ---
Lab states 3 unsuccessful sticks for blood draw. Charge nurse made aware.
--- NOTE | 2021-12-16 16:50 | NUR ---
Charge nurse at bedside for blood culture draw. Unable to obtain rest of blood sample.
[2021-12-16] MEDS ORDERED: cefTRIAXone 1,000 MG VIAL ONE (16:51)
--- NOTE | 2021-12-16 16:54 | NUR ---
UA collected by sky; handed to CPT Natasha at ER bedside.
--- NOTE | 2021-12-16 16:55 | NUR ---
CT delayed due to patient requesting to rest after blood draw. Dr. Nunez and Rachna, special procedures technologist made aware. Will contact when patient is ready.
--- NOTE | 2021-12-16 17:01 | NUR ---
Omari whitlock collected, walked to lab and handed to CPT. Sadie
--- NOTE | 2021-12-16 17:46 | NUR ---
Patient resting in semi-fowlers position with monitor worker in place. States "I feel tired," pain 5/10 at this time. Bed locked in lowest position, side rails x 2.
--- NOTE | 2021-12-16 17:46 | NUR ---
Pt states she feels ready for CT. CT contacted made aware pt is ready.
[2021-12-16] MEDS ORDERED: ESOM20EC PO (17:49)
--- NOTE | 2021-12-16 18:10 | NUR ---
1425mL removed from suction canister. Purewick remains in place.
--- NOTE | 2021-12-16 18:14 | NUR ---
[facility]
--- NOTE | 2021-12-16 18:21 | NUR ---
Pt returned from CT by richelle, placed back onto monitoring coordinator. Rachna quality control lab tech states charge nurse and house admin made aware. Dr. Nunez made aware.
[2021-12-16 19:03] LABS: BASOPHILS # (AUTO) 0.1 K/uL (0.00-0.22); BASOPHILS % (AUTO) 1.5 % (0.0-2.0); EOSINOPHILS # (AUTO) 0.1 K/uL (0-0.4); EOSINOPHILS % (AUTO) 1.1 % (0.0-4.0); HEMATOCRIT 35.5 % (36-48); HEMOGLOBIN 11.6 g/dL (12.0-16.0); LYMPHOCYTES # (AUTO) 0.6 K/uL (2.5-16.5); LYMPHOCYTES % (AUTO) 7.4 % (20.5-51.1); MEAN CORPUSCULAR HEMOGLOBIN 29 pg (27-31); MEAN CORPUSCULAR HGB CONC 33 g/dL (33-37); MEAN CORPUSCULAR VOLUME 87.4 fL (80-94); MONOCYTES # (AUTO) 0.5 K/uL (0.8-1.0); MONOCYTES % (AUTO) 6.5 % (1.7-9.3); NEUTROPHILS # (AUTO) 6.6 K/uL (1.8-7.7); NEUTROPHILS % (AUTO) 83.5 % (42.2-75.2); PLATELET COUNT (AUTO) 304 K/uL (140-450); RED BLOOD CELL COUNT(AUTO) 4.06 MIL/uL (4.20-5.40); RED CELL DISTRIBUTION WIDTH 16.5 % (11.6-13.7)
--- NOTE | 2021-12-16 19:25 | NUR ---
Report and transfer of care endorsed to ELLIOTT Lauren.
[2021-12-16 19:42] LABS: MAGNESIUM 2.2 mg/dL (1.8-2.4); PHOSPHORUS 3.7 mg/dL (2.5-4.9)
--- NOTE | 2021-12-16 19:45 | NUR ---
patient taken to CT with nurse escort
[2021-12-16 19:58] LABS: ALBUMIN 3.5 g/dL (3.4-5.0); ANION GAP 16.9 (8-16); ASPARTATE AMINOTRANSFERASE 18 U/L (15-37); CARBON DIOXIDE 25.2 mmol/L (21-32); CHLORIDE 105 mmol/L (98-107); CREATININE 0.8 mg/dL (0.6-1.3); GLUCOSE 103 mg/dL (74-106); POTASSIUM 4.1 mmol/L (3.5-5.1); SODIUM SERUM 143 mmol/L (136-145); TOTAL BILIRUBIN 1.4 mg/dL (0.0-1.0); UREA NITROGEN, BLOOD 13 mg/dL (7-18)
[2021-12-16] MEDS ORDERED: KETOROLAC 15 MG/ML VIAL IVP ONE (20:45)
[2021-12-16] MEDS ORDERED: ASPIRIN 81 MG TAB.CHEW PO SCH (21:25)
[2021-12-16 22:06] LABS: APPEARANCE,URINE CLEAR (CLEAR); BILIRUBIN,URINE NEGATIVE (NEGATIVE); BLOOD, URINE NEGATIVE (NEGATIVE); COLOR,URINE YELLOW (YELLOW); LEUKOCYTE ESTERASE ,URINE 2+ (NEGATIVE); NITRITE, URINE POSITIVE (NEGATIVE); UGLUCOSE NEGATIVE (NEGATIVE)
[2021-12-16] MEDS ORDERED: ONDANSETRON 4 MG/2 ML VIAL IVP ONE (22:45)
[2021-12-16 22:52] LABS: RBC,URINE 0-5 /HPF (0-5)
--- NOTE | 2021-12-16 23:07 | NUR ---
PATIENT GAGGING AND RETCHING COMPLAINING OF NAUSEA. ZOFRAN ORDERED
--- NOTE | 2021-12-16 23:57 | NUR ---
PATIENT REPOSITIONED AND PLACED IN POSITION OF COMFORT
--- NOTE | 2021-12-17 00:42 | NUR ---
REPORT GIVEN TO RAFY GALLAGHER AT THIS TIME. ADVISED OF 0315 ETA FOR PICKUP
--- NOTE | 2021-12-17 01:55 | NUR ---
PATIENT SHEETS CHANGED AT THIS TIME, REPOSITIONED TO POSITION OF COMFORT
--- NOTE | 2021-12-17 02:34 | NUR ---
PATIENT SLEEPING AT THIS TIME. NO ACUTE DISTRESS OR DISCOMFORT NOTED.
--- NOTE | 2021-12-17 04:17 | NUR ---
EMS ARRIVED AT THIS TIME. REPORT GIVEN TO PARAMEDICS AND CARE TRANSFERRED ONTO EMS FOR TRANSFER TO [facility]
[2021-12-17 04:23] VITALS: BP 140/92
--- NOTE | 2021-12-19 18:04 | NUR ---
LATE ENTRY. POSITIVE URINE CULTURE FOR E.COLI. PT WAS D/C FROM [facility]. SPOKE WITH PT, SHE IS CURRENTLY ON KEFLEX. DISCREPENCY LOG SIGNED BY DR CASAS, TREATMENT APPROPRIATE.
== END 2021-12-17 04:35 | disposition short-term general hospital (02) ==
LOC: MED 15:14
DX: N64.4 Mastodynia (principal); R10.9 Unspecified abdominal pain; L53.9 Erythematous condition, unspecified; I11.0 Hypertensive heart disease with heart failure; J44.9 Chronic obstructive pulmonary disease, unspecified; F41.9 Anxiety disorder, unspecified; Z20.822 Contact with and (suspected) exposure to COVID-19
CPT/HCPCS: 36415; 71045; 71250; 74176; 80053; 81001; 83605; 83690; 83735; 83880; 84100; 84484; 85025; 87040; 87086; 87426; 93005; 96365; 96375; 96376; 99285; J0696; J1885; J1940; J2405

== ENCOUNTER 2022-03-17 09:12 | Emergency (ER) | payer MEDICARE, BC, OTHER ==
[~2022-03-17] VITALS: Ht 160 cm; Wt 181.4 kg
[~2022-03-17 09:12] MED LIST changes: +ESOM20EC PO
--- NOTE | 2022-03-17 09:15 | NUR ---
ROBIN ALS TO ER BED 7
[2022-03-17 09:24] VITALS: BP 147/83
--- NOTE | 2022-03-17 09:40 | NUR ---
BHAVIN BOURNE "HOLD OFF ON ABG DO AT A LATER TIME"
--- NOTE | 2022-03-17 10:00 | NUR ---
LAB AT BEDSIDE.
[2022-03-17 10:14] LABS: BASOPHILS # (AUTO) 0.1 K/uL (0.00-0.22); BASOPHILS % (AUTO) 0.9 % (0.0-2.0); EOSINOPHILS # (AUTO) 0.2 K/uL (0-0.4); EOSINOPHILS % (AUTO) 2.2 % (0.0-4.0); HEMATOCRIT 34.7 % (36-48); HEMOGLOBIN 11.5 g/dL (12.0-16.0); LYMPHOCYTES # (AUTO) 0.9 K/uL (2.5-16.5); LYMPHOCYTES % (AUTO) 11.8 % (20.5-51.1); MEAN CORPUSCULAR HEMOGLOBIN 29 pg (27-31); MEAN CORPUSCULAR HGB CONC 33 g/dL (33-37); MEAN CORPUSCULAR VOLUME 86.5 fL (80-94); MONOCYTES # (AUTO) 0.9 K/uL (0.8-1.0); MONOCYTES % (AUTO) 11.2 % (1.7-9.3); NEUTROPHILS # (AUTO) 5.7 K/uL (1.8-7.7); NEUTROPHILS % (AUTO) 73.9 % (42.2-75.2); PLATELET COUNT (AUTO) 311 K/uL (140-450); RED BLOOD CELL COUNT(AUTO) 4.01 MIL/uL (4.20-5.40); RED CELL DISTRIBUTION WIDTH 16.3 % (11.6-13.7); WHITE BLOOD COUNT (AUTO) 7.7 K/uL (4.8-10.8)
--- NOTE | 2022-03-17 10:16 | NUR ---
RADIOLOGY AT BEDSIDE
--- NOTE | 2022-03-17 10:26 | NUR ---
76 y/o female biba from home with c/o SOB and cough x 6 months. Patient at 97% oxygen on room air. Patient is also noted with scabs through out her arms and abdomen. Patient is noted with redness to left breast. Medical History: AFIB, CHF and GERD NKDA
--- NOTE | 2022-03-17 10:41 | NUR ---
Dr. Brewer at bedside evaluating patient.
[2022-03-17 11:02] LABS: ALBUMIN 3.1 g/dL (3.4-5.0); ANION GAP 8.9 (8-16); ASPARTATE AMINOTRANSFERASE 18 U/L (15-37); CARBON DIOXIDE 32.3 mmol/L (21-32); CHLORIDE 102 mmol/L (98-107); CREATININE 0.8 mg/dL (0.6-1.3); GLUCOSE 116 mg/dL (74-106); POTASSIUM 4.2 mmol/L (3.5-5.1); SODIUM SERUM 139 mmol/L (136-145); TOTAL BILIRUBIN 0.7 mg/dL (0.0-1.0); UREA NITROGEN, BLOOD 15 mg/dL (7-18)
--- NOTE | 2022-03-17 11:02 | NUR ---
Anna-care provided to patient. Patient was made clean and dry.
--- NOTE | 2022-03-17 11:31 | NUR ---
MERCEDEZ DONISIA SWAB TAKEN AND WALKED TO LAB
[2022-03-17] MEDS ORDERED: MORPHINE SULFATE 4 MG/ML SYR ONE ×2 (13:17→17:14)
[2022-03-17] MEDS ORDERED: MORPHINE SULFATE 4 MG/ML SYR IVP ONE ×2 (13:20→17:15)
--- NOTE | 2022-03-17 13:22 | NUR ---
IVP MEDS GIVEN-NADR AT THIS TIME
--- NOTE | 2022-03-17 13:41 | NUR ---
LUNCH ORDER ETA 5 MINS
--- NOTE | 2022-03-17 14:10 | NUR ---
Offered patient her lunch tray, patient refused at this time.
--- NOTE | 2022-03-17 15:40 | NUR ---
Patient is sleeping in bed, vital signs stable. Patient has no signs of respiratory distress. Patient has 2 LPM of oxygen flowing with NC. Current oxygen level is 97%. Will continue to monitor.
--- NOTE | 2022-03-17 16:11 | NUR ---
Patient is sitting up on bed, eating lunch.
--- NOTE | 2022-03-17 16:21 | NUR ---
Patient to be transferred to [facility]. Is being transferred due to higher level of care. Receiving facility has accepting physician and available space. ER physician has signed transfer form. Patient or responsible alliance party has agreed to transfer and signed form. Patient belongings inventoried and will be sent with patient. Copy of nursing notes, lab reports, EKG, Physicians Orders and X-rays to be sent with patient. Report called to ELLIOTT Clark at receiving facility. [facility] has been called for transfer. ETA is 1700.
--- NOTE | 2022-03-17 16:21 | NUR ---
CALLED AND SPOKE TO ELLIOTT JOHNSTON AT [facility] TO GIVE REPORT.
--- NOTE | 2022-03-17 16:40 | NUR ---
Anna-care provided. Patient is clean and dry.
--- NOTE | 2022-03-17 17:20 | NUR ---
pt c/o bilat lower leg pain 07/06-ivp pain meds given-nadr at this time-post ivp pain meds pain 10/06 at this time. vvs
--- NOTE | 2022-03-17 18:38 | NUR ---
[facility] at bedside for transfer.
[2022-03-17 18:54] VITALS: BP 152/84
== END 2022-03-17 18:49 | disposition short-term general hospital (02) ==
LOC: MED 09:12
DX: I48.91 Unspecified atrial fibrillation (principal); Z20.822 Contact with and (suspected) exposure to COVID-19; R09.02 Hypoxemia; I11.0 Hypertensive heart disease with heart failure; I50.9 Heart failure, unspecified; J44.9 Chronic obstructive pulmonary disease, unspecified; Z79.899 Other long term (current) drug therapy
CPT/HCPCS: 36415; 71045; 80053; 83880; 84484; 85025; 87426; 93005; 96374; 96376; 99291; J2270; Q0092

== ENCOUNTER 2022-06-27 23:28 | Emergency (ER) | payer MEDICARE, BC, OTHER ==
[~2022-06-27] VITALS: Ht 160 cm; Wt 163.3 kg
[2022-06-27 23:38] VITALS: BP 154/90
--- NOTE | 2022-06-27 23:42 | NUR ---
PT ROBIN ALS. TAKEN TO BED 4
--- NOTE | 2022-06-28 00:22 | NUR ---
Dr. Mckeon examining patient.
[2022-06-28] MEDS ORDERED: AZITHROMYCIN 500 MG in DEXTROSE 5% 250 ML IV ONE (00:25)
[2022-06-28] MEDS ORDERED: cefTRIAXone 2,000 MG in DEXTROSE 5% 100 ML IV ONE (00:25)
--- NOTE | 2022-06-28 00:45 | NUR ---
PT REFUSING ABG AT THIS TIME DR DUNAWAY
[2022-06-28] MEDS ORDERED: cefTRIAXone 1,000 MG VIAL ONE (01:24)
[2022-06-28] MEDS ORDERED: AZITHROMYCIN 500 MG INJ VIAL IV ONE (01:25)
[2022-06-28 01:28] LABS: BASOPHILS % (AUTO) 0.7 % (0.0-2.0); EOSINOPHILS # (AUTO) 0.3 K/uL (0-0.4); EOSINOPHILS % (AUTO) 4.6 % (0.0-4.0); HEMOGLOBIN 11.6 g/dL (12.0-16.0); LYMPHOCYTES # (AUTO) 0.7 K/uL (2.5-16.5); LYMPHOCYTES % (AUTO) 11.4 % (20.5-51.1); MEAN CORPUSCULAR HEMOGLOBIN 29 pg (27-31); MEAN CORPUSCULAR HGB CONC 33 g/dL (33-37); MEAN CORPUSCULAR VOLUME 87.2 fL (80-94); MONOCYTES # (AUTO) 0.7 K/uL (0.8-1.0); MONOCYTES % (AUTO) 10.5 % (1.7-9.3); NEUTROPHILS # (AUTO) 4.6 K/uL (1.8-7.7); NEUTROPHILS % (AUTO) 72.8 % (42.2-75.2); PLATELET COUNT (AUTO) 292 K/uL (140-450); RED BLOOD CELL COUNT(AUTO) 4.02 MIL/uL (4.20-5.40); RED CELL DISTRIBUTION WIDTH 15.1 % (11.6-13.7); WHITE BLOOD COUNT (AUTO) 6.4 K/uL (4.8-10.8)
[2022-06-28] MEDS ORDERED: cefTRIAXone 2,000 MG VIAL ONE (01:32)
[2022-06-28 01:43] LABS: ALBUMIN 3.1 g/dL (3.4-5.0); ANION GAP 11.3 (8-16); ASPARTATE AMINOTRANSFERASE 17 U/L (15-37); CARBON DIOXIDE 29.5 mmol/L (21-32); CHLORIDE 105 mmol/L (98-107); CREATININE 0.7 mg/dL (0.6-1.3); GLUCOSE 109 mg/dL (74-106); POTASSIUM 3.8 mmol/L (3.5-5.1); SODIUM SERUM 142 mmol/L (136-145); UREA NITROGEN, BLOOD 13 mg/dL (7-18)
--- NOTE | 2022-06-28 01:53 | NUR ---
PT MOVED TO ER BED 1
[2022-06-28] MEDS ORDERED: MORPHINE SULFATE 4 MG/ML SYR IVP ONE ×2 (02:35→06:20)
[2022-06-28 02:43] LABS: BILIRUBIN,URINE NEGATIVE (NEGATIVE); BLOOD, URINE NEGATIVE (NEGATIVE); COLOR,URINE YELLOW (YELLOW); LEUKOCYTE ESTERASE ,URINE NEGATIVE (NEGATIVE); NITRITE, URINE NEGATIVE (NEGATIVE); UGLUCOSE NEGATIVE (NEGATIVE)
--- NOTE | 2022-06-28 03:00 | NUR ---
Patient A/Ox4, chest rise and fall symmetrical, resting comfortably in bed, no s/s of distress.
[2022-06-28 03:07] LABS: APPEARANCE,URINE SLIGHTLY HAZY (CLEAR)
[2022-06-28 03:08] LABS: RBC,URINE 0-5 /HPF (0-5); WBC,URINE 0-5 /HPF (0-5)
--- NOTE | 2022-06-28 05:58 | NUR ---
Patient voided 300 mL.
--- NOTE | 2022-06-28 05:59 | NUR ---
Patient A/Ox4, chest rise and fall symmetrical, resting comfortably in bed, no s/s of distress.
[2022-06-28] MEDS ORDERED: MORPHINE SULFATE 4 MG/ML SYR ONE (06:22)
--- NOTE | 2022-06-28 06:34 | NUR ---
Patient A/Ox4, chest rise and fall symmetrical, resting comfortably in bed, no s/s of distress.
--- NOTE | 2022-06-28 08:51 | NUR ---
spoke with maosud young er to er transfer [facility]. eta amr als pickle maker @[id number] admitted under md naidu
--- NOTE | 2022-06-28 09:08 | NUR ---
PT WAS DECIDED TO TRASFER TO [facility]. REPORT WAS CALLED [phone] TO CED GALLAGHER. ETA [id number].
--- NOTE | 2022-06-28 09:32 | NUR ---
AMBULANCE ARRIVED TO [facility] PT. REPORT WAS ENDORSED TO EMT.
[2022-06-28 09:33] VITALS: BP 133/76
== END 2022-06-28 09:33 | disposition short-term general hospital (02) ==
LOC: MED 23:28
DX: J44.1 Chronic obstructive pulmonary disease with (acute) exacerbation (principal); Z20.822 Contact with and (suspected) exposure to COVID-19; J18.9 Pneumonia, unspecified organism; I11.0 Hypertensive heart disease with heart failure; I50.9 Heart failure, unspecified; F32.9 Major depressive disorder, single episode, unspecified; Z79.899 Other long term (current) drug therapy; Z90.49 Acquired absence of other specified parts of digestive tract; Z98.890 Other specified postprocedural states
CPT/HCPCS: 36415; 71045; 71250; 80053; 81001; 83605; 84484; 85025; 87040; 87086; 87426; 93005; 96365; 96367; 96375; 96376; 99285; J0456; J0696; J2270; Q0092

== ENCOUNTER 2023-02-27 14:27 | Emergency (ER) | payer MEDICARE, OTHER ==
[~2023-02-27] VITALS: Ht 160 cm; Wt 172.4 kg
[2023-02-27] MEDS ORDERED: DICYCLOMINE HCL LIQUID 20 MG, ALUMINUM HYD/MAG/SIMETHICONE 30 ML, LIDOCAINE VISCOUS 2% ... PO ONE ×3 (14:35)
[2023-02-27] MEDS ORDERED: ONDANSETRON 4 MG ODT PO ONE (14:35)
[2023-02-27 14:38] VITALS: BP 178/104
[2023-02-27] MEDS ORDERED: DICYCLOMINE HCL LIQUID 10 MG/5 ML UDC ONE (14:55)
[2023-02-27] MEDS ORDERED: ALUMINUM HYD/MAG/SIMETHICONE 30 ML UDC ONE ×2 (14:55→14:56)
[2023-02-27 15:16] LABS: BASOPHILS # (AUTO) 0.1 K/uL (0.00-0.22); BASOPHILS % (AUTO) 0.6 % (0.0-2.0); EOSINOPHILS # (AUTO) 0.2 K/uL (0-0.4); EOSINOPHILS % (AUTO) 2.3 % (0.0-4.0); HEMATOCRIT 36.1 % (36-48); HEMOGLOBIN 11.9 g/dL (12.0-16.0); LYMPHOCYTES % (AUTO) 11.8 % (20.5-51.1); MEAN CORPUSCULAR HEMOGLOBIN 29 pg (27-31); MEAN CORPUSCULAR HGB CONC 33 g/dL (33-37); MEAN CORPUSCULAR VOLUME 87.7 fL (80-94); MONOCYTES # (AUTO) 0.9 K/uL (0.8-1.0); MONOCYTES % (AUTO) 10.5 % (1.7-9.3); NEUTROPHILS # (AUTO) 6.1 K/uL (1.8-7.7); NEUTROPHILS % (AUTO) 74.8 % (42.2-75.2); PLATELET COUNT (AUTO) 297 K/uL (140-450); RED BLOOD CELL COUNT(AUTO) 4.12 MIL/uL (4.20-5.40); RED CELL DISTRIBUTION WIDTH 16.8 % (11.6-13.7); WHITE BLOOD COUNT (AUTO) 8.1 K/uL (4.8-10.8)
--- NOTE | 2023-02-27 15:17 | NUR ---
Pt bib bls for acid reflux. Pt states it has become unbearable. Pt states she is "very sensitive to any pain". Pt cries out throughout the entire er when bp cuff goes off and takes cuff off. Pt is obese and unable to move herself, states she lives with her son who is her caregiver. Pt states she usually goes to [facility] but has been denied tx there (Dr Garcias). Pt is a/o x 4, vss (with note to hr), breathing equal and unlabored, speech clear. placed usgiv in R arm. Pt medicated as ordered, tolerating well. Pt on monitor.
[2023-02-27 15:33] LABS: LIPASE 31 U/L (73-393)
--- NOTE | 2023-02-27 15:44 | NUR ---
Pt placed on purewick, per her request.
--- NOTE | 2023-02-27 15:45 | NUR ---
Pt cleaned and placed on purewick, per her request.
[2023-02-27 15:46] LABS: ALBUMIN 3.1 g/dL (3.4-5.0); ANION GAP 10.5 (8-16); ASPARTATE AMINOTRANSFERASE 20 U/L (15-37); CARBON DIOXIDE 29.5 mmol/L (21-32); CHLORIDE 104 mmol/L (98-107); CREATININE 0.7 mg/dL (0.6-1.3); GLUCOSE 117 mg/dL (74-106); SODIUM SERUM 140 mmol/L (136-145); TOTAL BILIRUBIN 1.1 mg/dL (0.0-1.0); UREA NITROGEN, BLOOD 12 mg/dL (7-18)
[2023-02-27] MEDS ORDERED: oxyCODONE/APAP 5/325 MG 1 TAB TAB PO ONE (16:25)
--- NOTE | 2023-02-27 18:06 | NUR ---
Pt was up for dc earlier but was awaiting pick up attendant from son and grandson. Pt is physically large to be placed in the waiting room. Family arrived for pick up attendant. Pt in stable condition. ACI given and reviewed with pt. Pt verbalized understanding and will follow up with primary. Pt a/o x 4, vss, no ss of acute distress, breathing equal and unlabored, speech clear. Grandson César assisted pt to wc and then into car, without incident.
[2023-02-27 18:10] VITALS: BP 129/98
== END 2023-02-27 18:10 | disposition home or self-care (01) ==
LOC: MED 14:27
DX: R10.13 Epigastric pain (principal); R11.0 Nausea; J45.909 Unspecified asthma, uncomplicated; K21.9 Gastro-esophageal reflux disease without esophagitis; Z79.899 Other long term (current) drug therapy
CPT/HCPCS: 36415; 71045; 80053; 83690; 83880; 84484; 85025; 93005; 99285; Q0162

== ENCOUNTER 2023-05-07 13:08 | Emergency (ER) | payer MEDICARE, BC, OTHER ==
[2023-05-07] VITALS (7 sets, daily range): BP systolic 137; BP diastolic 86; PULSE 105–135; RESP 22–24; TEMP 98.2; O2SAT 95–98
[~2023-05-07] VITALS: Ht 152.4 cm; Wt 181.4 kg
[2023-05-07] MEDS ORDERED: ALBUTEROL SULFATE/IPRATROPIU 3 ML SOL IH ONE (13:15)
[2023-05-07] MEDS ORDERED: LORazepam 1 MG TAB PO ONE (13:30)
[2023-05-07 13:54] LABS: BASOPHILS % (AUTO) 0.9 % (0.0-2.0); EOSINOPHILS % (AUTO) 0.3 % (0.0-4.0); HEMATOCRIT 37.7 % (36-48); HEMOGLOBIN 12.4 g/dL (12.0-16.0); LYMPHOCYTES # (AUTO) 1.3 K/uL (2.5-16.5); MEAN CORPUSCULAR HEMOGLOBIN 29 pg (27-31); MEAN CORPUSCULAR HGB CONC 33 g/dL (33-37); MEAN CORPUSCULAR VOLUME 88.7 fL (80-94); MONOCYTES # (AUTO) 0.5 K/uL (0.8-1.0); MONOCYTES % (AUTO) 10.8 % (1.7-9.3); NEUTROPHILS # (AUTO) 2.9 K/uL (1.8-7.7); PLATELET COUNT (AUTO) 195 K/uL (140-450); RED BLOOD CELL COUNT(AUTO) 4.25 MIL/uL (4.20-5.40); RED CELL DISTRIBUTION WIDTH 15.4 % (11.6-13.7); WHITE BLOOD COUNT (AUTO) 4.7 K/uL (4.8-10.8)
[2023-05-07 14:10] LABS: ALANINE AMINOTRANSFERASE 24 U/L (12-78); ALKALINE PHOSPHATASE 94 U/L (50-136); ANION GAP 10.5 (8-16); ASPARTATE AMINOTRANSFERASE 47 U/L (15-37); CARBON DIOXIDE 31.9 mmol/L (21-32); CHLORIDE 100 mmol/L (98-107); CREATININE 0.6 mg/dL (0.6-1.3); GLUCOSE 116 mg/dL (74-106); POTASSIUM 3.4 mmol/L (3.5-5.1); SODIUM SERUM 139 mmol/L (136-145); TOTAL BILIRUBIN 0.9 mg/dL (0.0-1.0); TOTAL PROTEIN, SERUM 6.4 g/dL (6.4-8.2); UREA NITROGEN, BLOOD 9 mg/dL (7-18)
[2023-05-07] MEDS ORDERED: FUROSEMIDE 40 MG/4 ML VIAL IVP ONE (14:40)
[2023-05-07] MEDS ORDERED: HYDROcodone/APAP 5/325 MG 1 TAB TAB PO ONE (14:40)
[2023-05-07] MEDS ORDERED: LORazepam 2 MG/ML VIAL IVP ONE ×2 (15:25→21:10)
[2023-05-08 02:00] VITALS: BP 133/68; PULSE 77; RESP 22; O2SAT 98
== END 2023-05-08 02:00 | disposition short-term general hospital (02) ==
LOC: MED 13:08
DX: I11.0 Hypertensive heart disease with heart failure (principal); I50.9 Heart failure, unspecified; R53.1 Weakness; F41.9 Anxiety disorder, unspecified; J44.9 Chronic obstructive pulmonary disease, unspecified; E11.9 Type 2 diabetes mellitus without complications; K21.9 Gastro-esophageal reflux disease without esophagitis; E07.9 Disorder of thyroid, unspecified; Z79.899 Other long term (current) drug therapy
CPT/HCPCS: 36415; 71045; 80053; 82550; 83880; 84484; 85025; 85379; 87426; 94640; 96374; 96375; 96376; 99285; J1940; J2060; Q0092

== ENCOUNTER 2023-06-25 19:34 | Emergency (ER) | payer MEDICARE, BC, OTHER ==
[~2023-06-25] VITALS: Ht 160 cm; Wt 148.3 kg
[2023-06-25 19:48] VITALS: BP 111/84; PULSE 80; RESP 20; TEMP 97.4; O2SAT 92
[2023-06-25] MEDS ORDERED: ACETAMINOPHEN EXTRA STRENGTH 500 MG TAB PO ONE (21:00)
[2023-06-25] MEDS ORDERED: CRUSHER, PILL MC ONE (21:06)
[2023-06-25 22:14] LABS: BASOPHILS # (AUTO) 0.1 K/uL (0.00-0.22); BASOPHILS % (AUTO) 0.8 % (0.0-2.0); EOSINOPHILS # (AUTO) 0.1 K/uL (0-0.4); EOSINOPHILS % (AUTO) 1.7 % (0.0-4.0); HEMATOCRIT 33.8 % (36-48); LYMPHOCYTES # (AUTO) 0.9 K/uL (2.5-16.5); LYMPHOCYTES % (AUTO) 12.7 % (20.5-51.1); MEAN CORPUSCULAR HEMOGLOBIN 30 pg (27-31); MEAN CORPUSCULAR HGB CONC 33 g/dL (33-37); MEAN CORPUSCULAR VOLUME 90.9 fL (80-94); MONOCYTES # (AUTO) 0.9 K/uL (0.8-1.0); MONOCYTES % (AUTO) 12.5 % (1.7-9.3); NEUTROPHILS # (AUTO) 5.3 K/uL (1.8-7.7); NEUTROPHILS % (AUTO) 72.3 % (42.2-75.2); PLATELET COUNT (AUTO) 272 K/uL (140-450); RED BLOOD CELL COUNT(AUTO) 3.71 MIL/uL (4.20-5.40); RED CELL DISTRIBUTION WIDTH 15.9 % (11.6-13.7); WHITE BLOOD COUNT (AUTO) 7.3 K/uL (4.8-10.8)
[2023-06-25 22:40] LABS: INR 1.06 (0.8-1.2); PARTIAL THROMBOPLASTIN TIME 30.5 secs (22-35.6); PROTHROMBIN TIME 11.1 secs (10.8-13.4)
[2023-06-25 22:47] LABS: ALANINE AMINOTRANSFERASE 8 U/L (12-78); ALBUMIN 2.7 g/dL (3.4-5.0); ALKALINE PHOSPHATASE 92 U/L (50-136); ANION GAP 9.5 (8-16); ASPARTATE AMINOTRANSFERASE 17 U/L (15-37); CALCIUM 8.6 mg/dL (8.5-10.1); CARBON DIOXIDE 28.4 mmol/L (21-32); CHLORIDE 107 mmol/L (98-107); CREATININE 0.7 mg/dL (0.6-1.3); GLUCOSE 116 mg/dL (74-106); POTASSIUM 3.9 mmol/L (3.5-5.1); SODIUM SERUM 141 mmol/L (136-145); TOTAL BILIRUBIN 0.8 mg/dL (0.0-1.0); TOTAL PROTEIN, SERUM 6.1 g/dL (6.4-8.2); UREA NITROGEN, BLOOD 9 mg/dL (7-18)
[2023-06-25] MEDS ORDERED: MORPHINE SULFATE 4 MG/ML SYR IM ONE (23:10)
[2023-06-25] MEDS ORDERED: ALBUTEROL SULFATE/IPRATROPIU 3 ML SOL IH ONE (23:40)
[2023-06-25] MEDS ORDERED: FUROSEMIDE 40 MG/4 ML VIAL IVP ONE (23:40)
[2023-06-25 23:47] VITALS: PULSE 115; RESP 20; O2SAT 97
[2023-06-26] MEDS ORDERED: FUROSEMIDE 40 MG/4 ML VIAL IVP ONE (02:08)
[2023-06-26 03:45] LABS: BILIRUBIN,URINE NEGATIVE (NEGATIVE); BLOOD, URINE NEGATIVE (NEGATIVE); COLOR,URINE YELLOW (YELLOW); LEUKOCYTE ESTERASE ,URINE NEGATIVE (NEGATIVE); NITRITE, URINE POSITIVE (NEGATIVE); PH,URINE 6.5 (5.0-9.0); PROTEIN,URINE NEGATIVE (NEGATIVE); UGLUCOSE NEGATIVE (NEGATIVE); UROBILINOGEN,URINE 0.2 EU/dL (0.2 - 1)
[2023-06-26 03:56] LABS: APPEARANCE,URINE SLIGHTLY HAZY (CLEAR)
[2023-06-26 03:57] LABS: BACTERIA,URINE 4+ /HPF (None Seen); RBC,URINE 0-5 /HPF (0-5); SQUAMOUS EPITHELIAL CELL,UR 0-3 (FEW) /LPF (0-3 (FEW)); WBC,URINE 0-5 /HPF (0-5)
[2023-06-26] MEDS ORDERED: ALBUTEROL SULFATE/IPRATROPIU 3 ML SOL IH ONE ×2 (06:30→06:35)
[2023-06-26 06:45] VITALS: PULSE 107; RESP 16; O2SAT 96
[2023-06-26 07:20] VITALS: BP 107/64; PULSE 107; RESP 16; TEMP 97.9; O2SAT 96
== END 2023-06-26 07:20 | disposition short-term general hospital (02) ==
LOC: MED 19:34
DX: M17.0 Bilateral primary osteoarthritis of knee (principal); R60.9 Edema, unspecified; I50.9 Heart failure, unspecified; R06.02 Shortness of breath; J44.9 Chronic obstructive pulmonary disease, unspecified; E66.01 Morbid (severe) obesity due to excess calories; E11.9 Type 2 diabetes mellitus without complications; K21.9 Gastro-esophageal reflux disease without esophagitis; I10 Essential (primary) hypertension; E07.9 Disorder of thyroid, unspecified; Z68.43 Body mass index [BMI] 50.0-59.9, adult; Z79.899 Other long term (current) drug therapy
CPT/HCPCS: 36415; 71045; 80053; 81001; 82550; 83880; 84484; 85025; 85379; 85610; 85730; 87086; 93005; 94640; 96372; 96374; 99285; J1940; J2270; Q0092

== ENCOUNTER 2023-08-15 11:10 | Emergency (ER) | payer MEDICARE, BC, OTHER ==
[~2023-08-15] VITALS: Ht 167.6 cm; Wt 181.4 kg
[2023-08-15 11:13] VITALS: BP 125/75; PULSE 105; RESP 22; O2SAT 98
[2023-08-15] MEDS ORDERED: FUROSEMIDE 40 MG/4 ML VIAL IVP ONE (11:25)
[2023-08-15 12:19] LABS: ALANINE AMINOTRANSFERASE 19 U/L (12-78); ALBUMIN 2.8 g/dL (3.4-5.0); ALKALINE PHOSPHATASE 98 U/L (50-136); ANION GAP 10.9 (8-16); ASPARTATE AMINOTRANSFERASE 19 U/L (15-37); CALCIUM 8.1 mg/dL (8.5-10.1); CARBON DIOXIDE 29.5 mmol/L (21-32); CHLORIDE 106 mmol/L (98-107); CREATININE 0.7 mg/dL (0.6-1.3); GLUCOSE 121 mg/dL (74-106); POTASSIUM 4.4 mmol/L (3.5-5.1); SODIUM SERUM 142 mmol/L (136-145); TOTAL BILIRUBIN 0.5 mg/dL (0.0-1.0); TOTAL PROTEIN, SERUM 6.5 g/dL (6.4-8.2); UREA NITROGEN, BLOOD 13 mg/dL (7-18)
[2023-08-15] MEDS ORDERED: ALBUTEROL SULFATE/IPRATROPIU 3 ML SOL IH ONE (12:35)
[2023-08-15 12:50] VITALS: PULSE 108; RESP 22; O2SAT 93
[2023-08-15] MEDS ORDERED: ASPIRIN 325 MG TAB PO ONE (13:05)
[2023-08-15 14:48] LABS: BASOPHILS # (AUTO) 0.1 K/uL (0.00-0.22); BASOPHILS % (AUTO) 0.9 % (0.0-2.0); EOSINOPHILS # (AUTO) 0.5 K/uL (0-0.4); EOSINOPHILS % (AUTO) 4.4 % (0.0-4.0); HEMATOCRIT 31.5 % (36-48); LYMPHOCYTES # (AUTO) 1.3 K/uL (2.5-16.5); MEAN CORPUSCULAR HEMOGLOBIN 29 pg (27-31); MEAN CORPUSCULAR HGB CONC 32 g/dL (33-37); MEAN CORPUSCULAR VOLUME 90.7 fL (80-94); MONOCYTES % (AUTO) 8.9 % (1.7-9.3); NEUTROPHILS # (AUTO) 8.8 K/uL (1.8-7.7); NEUTROPHILS % (AUTO) 74.8 % (42.2-75.2); PLATELET COUNT (AUTO) 252 K/uL (140-450); RED BLOOD CELL COUNT(AUTO) 3.48 MIL/uL (4.20-5.40); RED CELL DISTRIBUTION WIDTH 15.3 % (11.6-13.7); WHITE BLOOD COUNT (AUTO) 11.7 K/uL (4.8-10.8)
[2023-08-15 18:04] VITALS: BP 125/75; PULSE 96; RESP 20; TEMP 98.1; O2SAT 93
== END 2023-08-15 18:03 | disposition short-term general hospital (02) ==
LOC: MED 11:10
DX: J96.00 Acute respiratory failure, unspecified whether with hypoxia or hypercapnia (principal); I11.0 Hypertensive heart disease with heart failure; I50.9 Heart failure, unspecified; Z20.822 Contact with and (suspected) exposure to COVID-19; J81.1 Chronic pulmonary edema; J45.909 Unspecified asthma, uncomplicated; I48.91 Unspecified atrial fibrillation; J44.9 Chronic obstructive pulmonary disease, unspecified; E11.9 Type 2 diabetes mellitus without complications; K21.9 Gastro-esophageal reflux disease without esophagitis; Z86.39 Personal history of other endocrine, nutritional and metabolic disease; F41.9 Anxiety disorder, unspecified; Z79.899 Other long term (current) drug therapy
CPT/HCPCS: 36415; 71045; 80053; 83880; 84484; 85025; 87426; 93005; 94640; 96374; 99285; J1940; Q0092

== ENCOUNTER 2023-09-19 11:00 | Emergency (ER) | payer MEDICARE, BC, OTHER ==
[~2023-09-19] VITALS: Ht 167.6 cm; Wt 167.8 kg
[2023-09-19 11:16] VITALS: BP 136/96; PULSE 111; RESP 23; TEMP 98.3; O2SAT 99
[2023-09-19] MEDS ORDERED: ACETAMINOPHEN EXTRA STRENGTH 500 MG TAB PO ONE (11:30)
[2023-09-19] MEDS ORDERED: LORazepam 1 MG TAB PO ONE ×2 (11:45→17:45)
[2023-09-19 11:51] LABS: BASOPHILS # (AUTO) 0.1 K/uL (0.00-0.22); BASOPHILS % (AUTO) 0.7 % (0.0-2.0); EOSINOPHILS # (AUTO) 0.3 K/uL (0-0.4); EOSINOPHILS % (AUTO) 3.5 % (0.0-4.0); HEMATOCRIT 30.7 % (36-48); LYMPHOCYTES # (AUTO) 0.5 K/uL (2.5-16.5); LYMPHOCYTES % (AUTO) 6.9 % (20.5-51.1); MEAN CORPUSCULAR HEMOGLOBIN 28 pg (27-31); MEAN CORPUSCULAR HGB CONC 33 g/dL (33-37); MEAN CORPUSCULAR VOLUME 87.1 fL (80-94); MONOCYTES # (AUTO) 0.8 K/uL (0.8-1.0); MONOCYTES % (AUTO) 10.3 % (1.7-9.3); NEUTROPHILS # (AUTO) 5.8 K/uL (1.8-7.7); NEUTROPHILS % (AUTO) 78.6 % (42.2-75.2); PLATELET COUNT (AUTO) 344 K/uL (140-450); RED BLOOD CELL COUNT(AUTO) 3.52 MIL/uL (4.20-5.40); RED CELL DISTRIBUTION WIDTH 16.2 % (11.6-13.7); WHITE BLOOD COUNT (AUTO) 7.4 K/uL (4.8-10.8)
[2023-09-19 12:09] LABS: ANION GAP 10.5 (8-16); CALCIUM 8.5 mg/dL (8.5-10.1); CARBON DIOXIDE 32.4 mmol/L (21-32); CHLORIDE 102 mmol/L (98-107); CREATININE 0.6 mg/dL (0.6-1.3); GLUCOSE 139 mg/dL (74-106); POTASSIUM 3.9 mmol/L (3.5-5.1); SODIUM SERUM 141 mmol/L (136-145); UREA NITROGEN, BLOOD 6 mg/dL (7-18)
[2023-09-19 12:12] LABS: INR 1.05 (0.8-1.2); PARTIAL THROMBOPLASTIN TIME 30.3 secs (22-35.6)
[2023-09-19 12:17] LABS: LACTIC ACID 1.2 mmol/L (0.4-2.0)
[2023-09-19 12:19] LABS: ALANINE AMINOTRANSFERASE 13 U/L (12-78); ALBUMIN 2.6 g/dL (3.4-5.0); ALKALINE PHOSPHATASE 68 U/L (50-136); ASPARTATE AMINOTRANSFERASE 11 U/L (15-37); BILIRUBIN,DIRECT 0.2 mg/dL (0.0-0.3); CREATINE KINASE, TOTAL 36 U/L (26-192); TOTAL BILIRUBIN 0.7 mg/dL (0.0-1.0); TOTAL PROTEIN, SERUM 6.5 g/dL (6.4-8.2)
[2023-09-19 12:30] LABS: FLU A ANTIGEN negative (NEGATIVE); FLU B ANTIGEN negative (NEGATIVE)
[2023-09-19] MEDS ORDERED: OLANZapine 5 MG ODT SL ONE (14:30)
[2023-09-19] MEDS ORDERED: FUROSEMIDE 40 MG/4 ML VIAL IVP ONE (17:40)
[2023-09-19 18:40] LABS: APPEARANCE,URINE CLEAR (CLEAR); BILIRUBIN,URINE NEGATIVE (NEGATIVE); BLOOD, URINE NEGATIVE (NEGATIVE); LEUKOCYTE ESTERASE ,URINE TRACE (NEGATIVE); NITRITE, URINE NEGATIVE (NEGATIVE); PROTEIN,URINE NEGATIVE (NEGATIVE); UGLUCOSE NEGATIVE (NEGATIVE); UROBILINOGEN,URINE 0.2 EU/dL (0.2 - 1)
[2023-09-19 18:45] LABS: COLOR,URINE STRAW (YELLOW)
[2023-09-19 19:18] LABS: BACTERIA,URINE 2+ /HPF (None Seen); RBC,URINE NONE SEEN /HPF (0-5); SQUAMOUS EPITHELIAL CELL,UR 80-100 /LPF (0-3 (FEW)); WBC,URINE 0-5 /HPF (0-5)
[2023-09-19 19:26] VITALS: BP 136/96; PULSE 107; RESP 23; TEMP 98.3; O2SAT 94
== END 2023-09-19 19:32 | disposition short-term general hospital (02) ==
LOC: MED 11:00
DX: I11.0 Hypertensive heart disease with heart failure (principal); I50.9 Heart failure, unspecified; I48.91 Unspecified atrial fibrillation; E66.01 Morbid (severe) obesity due to excess calories; J90 Pleural effusion, not elsewhere classified; F41.9 Anxiety disorder, unspecified; R79.1 Abnormal coagulation profile; Z20.822 Contact with and (suspected) exposure to COVID-19; J44.9 Chronic obstructive pulmonary disease, unspecified; E11.9 Type 2 diabetes mellitus without complications; K21.9 Gastro-esophageal reflux disease without esophagitis; Z79.899 Other long term (current) drug therapy
CPT/HCPCS: 36415; 71045; 80048; 80076; 81001; 82550; 82553; 83605; 83880; 84484; 85025; 85379; 85610; 85730; 87040; 87086; 87426; 87804; 93005; 99285; Q0092; J1940

== ENCOUNTER 2023-10-26 12:23 | Emergency (ER) | payer MEDICARE, BC, OTHER ==
[~2023-10-26] VITALS: Ht 160 cm; Wt 249.5 kg
[2023-10-26 12:27] VITALS: BP 136/81; PULSE 117; RESP 19; TEMP 98.1; O2SAT 95
[2023-10-26] MEDS ORDERED: ACETAMINOPHEN EXTRA STRENGTH 500 MG TAB PO ONE (12:55)
[2023-10-26 13:03] VITALS: O2SAT 95
[2023-10-26] MEDS ORDERED: MORPHINE SULFATE 4 MG/ML SYR IVP ONE (13:50)
[2023-10-26 14:46] LABS: BASOPHILS # (AUTO) 0.1 K/uL (0.00-0.22); BASOPHILS % (AUTO) 0.9 % (0.0-2.0); EOSINOPHILS # (AUTO) 0.2 K/uL (0-0.4); EOSINOPHILS % (AUTO) 3.3 % (0.0-4.0); HEMOGLOBIN 11.6 g/dL (12.0-16.0); LYMPHOCYTES % (AUTO) 13.6 % (20.5-51.1); MEAN CORPUSCULAR HEMOGLOBIN 28 pg (27-31); MEAN CORPUSCULAR HGB CONC 33 g/dL (33-37); MONOCYTES # (AUTO) 0.7 K/uL (0.8-1.0); MONOCYTES % (AUTO) 9.8 % (1.7-9.3); NEUTROPHILS # (AUTO) 5.4 K/uL (1.8-7.7); NEUTROPHILS % (AUTO) 72.4 % (42.2-75.2); PLATELET COUNT (AUTO) 280 K/uL (140-450); RED BLOOD CELL COUNT(AUTO) 4.16 MIL/uL (4.20-5.40); RED CELL DISTRIBUTION WIDTH 17.1 % (11.6-13.7); WHITE BLOOD COUNT (AUTO) 7.5 K/uL (4.8-10.8)
[2023-10-26 14:51] LABS: APPEARANCE,URINE CLEAR (CLEAR); BILIRUBIN,URINE 2+ (NEGATIVE); BLOOD, URINE NEGATIVE (NEGATIVE); COLOR,URINE YELLOW (YELLOW); LEUKOCYTE ESTERASE ,URINE NEGATIVE (NEGATIVE); NITRITE, URINE NEGATIVE (NEGATIVE); PH,URINE 7.5 (5.0-9.0); PROTEIN,URINE TRACE (NEGATIVE); UGLUCOSE NEGATIVE (NEGATIVE)
[2023-10-26 14:57] LABS: ICTOTEST NEGATIVE (NEGATIVE)
[2023-10-26 15:02] LABS: ALANINE AMINOTRANSFERASE 11 U/L (12-78); ALBUMIN 2.6 g/dL (3.4-5.0); ALKALINE PHOSPHATASE 113 U/L (50-136); ANION GAP 8.9 (8-16); ASPARTATE AMINOTRANSFERASE 24 U/L (15-37); CALCIUM 8.8 mg/dL (8.5-10.1); CARBON DIOXIDE 32.1 mmol/L (21-32); CHLORIDE 101 mmol/L (98-107); CREATININE 0.7 mg/dL (0.6-1.3); GLUCOSE 104 mg/dL (74-106); LIPASE 10 U/L (16-77); SODIUM SERUM 138 mmol/L (136-145); TOTAL BILIRUBIN 0.8 mg/dL (0.0-1.0); TOTAL PROTEIN, SERUM 7.5 g/dL (6.4-8.2); UREA NITROGEN, BLOOD 6 mg/dL (7-18)
[2023-10-26] MEDS ORDERED: LORazepam 2 MG/ML VIAL ONE (15:13)
[2023-10-26] MEDS ORDERED: LORazepam 2 MG/ML VIAL IVP ONE (15:15)
[2023-10-26 15:29] LABS: FLU A ANTIGEN negative (NEGATIVE); FLU B ANTIGEN NEGATIVE (NEGATIVE)
[2023-10-26] MEDS ORDERED: DIAZEPAM PFS 10 MG/2 ML SYR IVP ONE (18:45)
[2023-10-26 19:12] VITALS: PULSE 120; RESP 20; O2SAT 92
[2023-10-26 19:47] VITALS: O2SAT 92
[2023-10-26 20:06] VITALS: BP 128/83; PULSE 105; RESP 18; TEMP 98.2; O2SAT 97
== END 2023-10-26 19:58 | disposition home or self-care (01) ==
LOC: MED 12:23
DX: R10.9 Unspecified abdominal pain (principal); Z20.822 Contact with and (suspected) exposure to COVID-19; K62.89 Other specified diseases of anus and rectum; J45.909 Unspecified asthma, uncomplicated; J44.9 Chronic obstructive pulmonary disease, unspecified; K21.9 Gastro-esophageal reflux disease without esophagitis; I11.9 Hypertensive heart disease without heart failure; E11.9 Type 2 diabetes mellitus without complications; Z79.4 Long term (current) use of insulin; Z79.899 Other long term (current) drug therapy
CPT/HCPCS: 36415; 71045; 80053; 81003; 83690; 83880; 84484; 85025; 87426; 87804; 93005; 96374; 96375; 99285; J2060; J2270; J3360